=== PATIENT | female | born 1955 | race Two or more races ===

== ENCOUNTER 2020-10-27 23:32 | Emergency (ER) | payer OTHER ==
[~2020-10-27] VITALS: Ht 157.5 cm; Wt 81.6 kg
[2020-10-27] MEDS ORDERED: DRAMAMINE LESS25 MG (23:48)
[2020-10-27] MEDS ORDERED: VALSARTAN-HCTZ1 EAC1 (23:48)
[2020-10-27] MEDS ORDERED: EZALLOR SPRINKL10 MG (23:49)
[2020-10-27] MEDS ORDERED: IMURAN50 MG (23:49)
[2020-10-28] MEDS ORDERED: DIPHENHYDRAMINE25 MG PO (03:24)
[2020-10-28] MEDS ORDERED: PHENERGAN25 MG PO (03:24)
[2020-10-28] MEDS ORDERED: MOTION RELIEF25 MG PO (03:24)
== END 2020-10-28 03:51 | disposition home or self-care (01) ==
LOC: ER 23:32
DX: H81.13 Benign paroxysmal vertigo, bilateral (principal); Z03.818 Encounter for observation for suspected exposure to other biological agents ruled out

== ENCOUNTER 2021-07-11 08:00 | Outpatient (CLI) | payer OTHER ==
[~2021-07-11 08:00] MED LIST: DIPHENHYDRAMINE25 MG PO; DRAMAMINE LESS25 MG; EZALLOR SPRINKL10 MG; IMURAN50 MG; MOTION RELIEF25 MG PO; PHENERGAN25 MG PO; VALSARTAN-HCTZ1 EAC1
== END 2021-07-11 08:30 | disposition home or self-care (01) ==
LOC: PPH VACUNA 08:00
DX: Z23 Encounter for immunization (principal)